=== PATIENT | male | born 1985 | race Caucasian/White ===

== ENCOUNTER 2020-04-15 18:17 | Emergency (ER) | payer OTHER ==
[~2020-04-15] VITALS: Ht 177.8 cm; Wt 82.0 kg
[2020-04-15 18:19] VITALS: BP 137/94
[2020-04-15] MEDS ORDERED: LIDOCAINE-MPF 1%, 5ML INFIL ONE (18:30)
[2020-04-15] MEDS ORDERED: LIDOCAINE-MPF 1%, 5ML ONE (20:33)
[2020-04-15] MEDS ORDERED: LIDOCAINE 1%-EPI 1:100K, 20ML ONE (21:09)
[2020-04-15] MEDS ORDERED: PROMETHAZINE 25 MG/ML, 1ML IM STA (21:33)
[2020-04-15] MEDS ORDERED: PROMETHAZINE 25 MG/ML, 1ML ONE (21:34)
[2020-04-15] MEDS ORDERED: NEOSPORIN OINT. PKT 1 PACKET ONE (21:59)
--- NOTE | 2020-04-15 23:18 | NUR ---
PT SLEEPING ON [employer] AT THIS TIME ETTA
--- NOTE | 2020-04-15 23:45 | NUR ---
DRESSING APPLIED PT AMB TO D/C DESK STEADY GAIT
== END 2020-04-15 23:47 | disposition home or self-care (01) ==
LOC: ED 20:54
DX: S81.811A Laceration without foreign body, right lower leg, initial encounter (principal); W45.8XXA Other foreign body or object entering through skin, initial encounter; Y93.01 Activity, walking, marching and hiking; Y92.098 Other place in other non-institutional residence as the place of occurrence of the external cause; Y99.8 Other external cause status
CPT/HCPCS: 12004; 73590; 96372; 99283; J2550